=== PATIENT | male | born 1950 | race Caucasian/White ===

== ENCOUNTER 2016-09-13 05:21 | Inpatient (IN) | payer BC ==
[2016-09-08 12:04] LABS: BASOPHILS 0.4 %; BASOPHILS ABSOLUTE 0.03 10/3/uL (0.0-0.16); EOSINOPHILS 2.7 %; EOSINOPHILS ABSOLUTE 0.22 10/3/uL (0.0-0.53); HEMATOCRIT 43.8 % (40.0-51.0); HEMOGLOBIN 15.1 g/dL (13.6-17.8); IMMATURE GRANULOCYTES 0.2 %; IMMATURE GRANULOCYTES ABSOLUTE 0.02 10/3/uL (0.0-0.11); LYMPHOCYTES 32.8 %; LYMPHOCYTES ABSOLUTE 2.65 10/3/uL (0.67-4.30); MANUAL DIFF NO %; MEAN CORPUS HGB CONC 34.5 g/dL (32.0-36.0); MEAN CORPUSCULAR HEMOGLOB 31.1 pg (26.0-34.0); MEAN CORPUSCULAR VOLUME 90.3 fL (80-100); MONOCYTES ABSOLUTE 0.89 10/3/uL (0.21-1.20); NEUTROPHILS 52.9 %; NEUTROPHILS ABSOLUTE 4.26 10/3/uL (2.02-8.40); PLATELET COUNT 199 10/3/uL (150-400); RBC DISTRIBUTION WIDTH 14.2 % (12.0-16.0); RED CELL COUNT 4.85 10/6/uL (4.7-6.1); WHITE BLOOD CELLS 8.1 10/3/uL (4.5-10.5)
[2016-09-08 12:10] LABS: PARTIAL THROMBO TIME 30.1 SEC (22.5-37.2)
[2016-09-08 12:32] LABS: CALCIUM, SERUM 9.7 MG/DL (8.5-10.4); CHLORIDE, SERUM 108 MMOL/L (96-112); CO2 (CARBON DIOXIDE) 28 MMOL/L (24-34); CREATININE 0.95 MG/DL (0.70-1.30); GFR AFRICAN AMERICAN 96 ML/MIN (>=60); GFR NON AFRICAN AMERICAN 83 ML/MIN (>=60); GLUCOSE, SERUM 103 MG/DL (60-99); POTASSIUM, SERUM 4.5 MMOL/L (3.5-5.3); SODIUM, SERUM 141 MMOL/L (135-148)
[2016-09-08 12:33] LABS: BUN (BLOOD UREA NITROGEN) 16 MG/DL (6-23)
--- NOTE | ~2016-09-13 | PREOPHP ---
PreOp History and Physical [id number] [place]. [address] NAME: NAINA YU : 48 STATUS : ADM IN [facility]#: [id number] AGE: 66 ADM/REG DATE : 09/13/16 MR#: [id number] REPORT SERV DATE: 09/14/16 DICTATED BY: GREYSON PUGA DATE: 09/13/16 REPORT STATUS : Draft TRANSCRIBED BY: MODL DATE: 09/13/16 CHIEF COMPLAINT: Recurrent melanoma, right occipital neck. 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 He was noted to have a subcutaneous mass that was diffuse and plaque-like on palpation per Dr. Briceño. Imaging showed an approximately 2-3 cm right suboccipital subcutaneous neck mass. This was FDG avid. There was no additional lymphadenopathy or distant metastasis. The needle biopsy performed of this area on 08/24/2016 showed atypical spindle cell proliferation consistent with recurrent desmoplastic melanoma. The risks, benefits, and alternatives to surgery were discussed with him and he agreed. He was to be admitted after surgery for monitoring. PAST MEDICAL HISTORY: Gout, hypertension, hypercholesterolemia, malignant melanoma, and prostate enlargement. PAST SURGICAL HISTORY: Wide local excision of desmoplastic melanoma of the right parietal scalp, with skin graft reconstruction, rhinoplasty, cardiac bypass, colonoscopy, knee surgery, back surgery, radiation therapy to the right scalp completed in [address] Briceño. MEDICATIONS: Allopurinol, aspirin, metoprolol, pravastatin, and tamsulosin. ALLERGIES: NONE. SOCIAL HISTORY: Occasional caffeine. No alcohol or tobacco. FAMILY HISTORY: Noncontributory. REVIEW OF SYSTEMS: Unremarkable. PHYSICAL EXAMINATION: VITAL SIGNS: Blood pressure 143/79, pulse 53, weight 196 pounds. HEENT: His ears are normal. His nose is normal. His oral cavity and oropharynx are normal. Hypopharynx and larynx not directly visualized. NECK: No adenopathy. SKIN: The skin in the scalp area shows a 2-3 cm subcutaneous plaque-like mass coming down the superior posterior aspect of the sternomastoid muscle at the occipital [place]. He has a well-healed skin graft, right parietal scalp. No palpable cervical lymphadenopathy. HEART: Regular rate and rhythm. LUNGS: Clear to auscultation bilaterally. ABDOMEN: Soft, nontender. EXTREMITIES: Moves all extremities well with good strength. NEUROLOGIC: His cranial nerves are intact, 2 through 12. No gait disturbance. IMPRESSION: Recurrent malignant melanoma of the right occipital neck. PreOp History and Physical [address] [address] NAME: NAINA YU : 48 STATUS : ADM IN [facility]#: [id number] AGE: 66 ADM/REG DATE : 09/13/16 MR#: [id number] REPORT SERV DATE: 09/14/16 DICTATED BY: GREYSON PUGA DATE: 09/13/16 REPORT STATUS : Draft TRANSCRIBED BY: MODL DATE: 09/13/16 PLAN: Plan is for a composite resection of right occipital skin with extended posterolateral neck dissection, cranial nerve 11 transposition, and a complex closure of defect. The patient will be admitted after surgery for observation and monitoring. PH/MODL Greyson Puga M.D. / [id number] CC: Greyson Puga M.D.
--- NOTE | ~2016-09-13 | OP ---
Record Of Operation [address] [place]. [address] NAME: NAINA YU : 48 STATUS : ADM IN PAT#: [id number] AGE: 66 ADM/REG DATE : 09/13/16 MR#: [id number] REPORT SERV DATE: 09/13/16 DICTATED BY: DAVONTE PUGA DATE: 09/13/16 REPORT STATUS : Draft TRANSCRIBED BY: MODL DATE: 09/13/16 DATE OF PROCEDURE: 09/13/2016 PREOPERATIVE DIAGNOSIS: Recurrent malignant melanoma of the right occipital basin. POSTOPERATIVE DIAGNOSIS: Recurrent malignant melanoma of the right occipital basin. PROCEDURES PERFORMED: 1. Composite resection of right occipital recurrent desmoplastic malignant melanoma with 5 x 3 cm skin defect. 2. Right posterolateral neck dissection, levels 2 through 5. 3. Wide local cranial nerve 11 transposition. 4. Complex closure of 5 x 3 cm occipital cutaneous defect. SURGEON: Davonte Puga M.D. MANAGER OF INFORMATION: Storm Grier M.D. ANESTHESIA: General. COMPLICATIONS: None. CONDITION: Stable to recovery. INDICATION: A 66-year-old male with recurrent desmoplastic melanoma of the right occipital [place] involving sternocleidomastoid and some of the subcutaneous tissue of the skin. PROCEDURE IN DETAIL: The patient was identified in preoperative holding, taken back to the operating room, and placed supine on the operating room table. General anesthesia was established. He was prepped and draped in a standard fashion for the operation. A time-out was called and patient and procedure were confirmed. He was placed on a mora bag and put in a partial left lateral decubitus position to provide better exposure to the right occipital [place]. A marking pen was used to outline an incision from the occiput down into the low neck incorporating the subcutaneous area of involvement with the large ellipse. The area was infiltrated subcutaneously with 8 mL of 1% lidocaine with 1:100,000 epinephrine along the incision that was marked. He was then prepped and draped in the standard fashion for the operation. Using 2.5x loupe magnification and headlight illumination, the operation commenced. A Bovie cautery was used to make an incision in the premarked area from the occiput into the low neck incorporating an ellipse of 5 x 3 cm of skin and subcutaneous tissue. The flaps were elevated medially to the midline, superiorly to the angle of the mandible, inferiorly to the clavicle, and laterally to the trapezius muscle, anterior border. The occipital scalp flaps were elevated thin and then into a deeper plane transitioning to the insertions of the trapezius muscle on the occiput as well as the sternomastoid muscle on the occiput. Care was taken to avoid entering into the tumor. Prior to the comprehensive neck dissection, the plaque-like tumor overlying the upper aspect of the sternomastoid muscle was excised en bloc. This involved dissection anteriorly to the Record Of Operation [address] [place]. [address] NAME: NAINA YU : 48 STATUS : ADM IN PAT#: [id number] AGE: 66 ADM/REG DATE : 09/13/16 MR#: [id number] REPORT SERV DATE: 09/13/16 DICTATED BY: DAVONTE PUGA DATE: 09/13/16 REPORT STATUS : Draft TRANSCRIBED BY: MODL DATE: 09/13/16 postauricular sulcus down to the mastoid fascia and posteriorly down to the occipital fascia just deep to the insertions of the trapezius muscle. These muscles were transected down to the splenius capitis, which was our deep margin on this tumor. Anteriorly, we took the upper third of the sternocleidomastoid muscle in addition to the third of the splenius capitis muscle and the upper 1/5 of the trapezius muscle insertion to the occiput. This allowed us to deliver the skin, subcutaneous tumor, and muscle from a superior to inferior direction. Once this was done, a spinal accessory nerve was identified in the posterior triangle. It was 360-degree dissected and transposed inferomedially so that we could deliver the contents of level 5A with the suboccipital tumor. This involved identifying levator scapulae and splenius capitis muscle in the posterior neck, in addition to the area where we excised the upper third of the sternocleidomastoid muscle and its insertions to the mastoid and occiput. This specimen was sent as composite resection of occipital mass with sternocleidomastoid, splenius capitis, and trapezius muscle on level 5A. After this was done, Pathology was called to the room. Pathology did an assessment of the tumor grossly, kinking the tumor and then cutting through it, given its plaque-like formation and difficulty being sure about margins. Once we inspected this grossly, the margins appeared clear. Additionally, we took an area of subcutaneous dermis just to the lateral aspect of the cutaneous portion of the excision and this did not appear to have any scar or desmoplastic features to it and it looked as if it was normal dermis. At this point, we completed the neck dissection, levels 2 through 5, by taking the lymphatic tissue from just inferior to the spinal accessory nerve over the splenius capitis and anterior medial scalene muscles and down into the supraclavicular fossa, ligating the transverse cervical artery and vein, and with hemoclips and Harmonic scalpel, skeletonizing the clavicle, soft-tissue dropping into the supraclavicular fossa identifying the posterior belly of the omohyoid muscle and retracting this so that we could get into the deeper neck area and we reflected all of the lymphatic tissue from the supraclavicular fossa and inferior to the spinal accessory nerve anteriorly and underneath the sternocleidomastoid muscle and over the carotid artery and jugular vein. This was brought into continuity with level 2B superiorly in the neck that was above the spinal accessory nerve and this was delivered underneath the spinal accessory nerve with gentle transposition, and these lymph nodes were dissected off the jugular vein and the medial strap musculature and off the inferior border of the submandibular gland. This lymphatic tissue was divided into levels 2, 3, 4, and 5B. The wound was irrigated. Bipolar cautery was used for hemostasis. A 10-Estonian flat fully-perforated drain was placed and secured with 3-0 Vicryl suture and the wound was closed in layers using 3-0 Vicryl and bree. Part of the closure did involve closing the 5 x 3 cm complex defect and Burow triangles had to be removed and significant undermining to get it to close. The patient was then awakened and taken to recovery in stable condition. The spinal accessory nerve worked at the end of the case. There were no complications. PH/MODL Davonte Puga M.D. Record Of Operation [address] [place]. [address] NAME: NAINA YU : 48 STATUS : ADM IN PAT#: [id number] AGE: 66 ADM/REG DATE : 09/13/16 MR#: [id number] REPORT SERV DATE: 09/13/16 DICTATED BY: DAVONTE PUGA DATE: 09/13/16 REPORT STATUS : Draft TRANSCRIBED BY: MODL DATE: 09/13/16 / [id number] CC: Davonte Puga M.D.
[~2016-09-13 05:21] MED LIST: ASAB PO; ELDERTONIC PO; FLOMAX4 PO; LOP25 PO; LOTE20 PO; PRAVACHOL40 MG PO; VERELAN240 MG PO
[2016-09-14 05:18] LABS: BASOPHILS 0 %; BASOPHILS ABSOLUTE 0.01 10/3/uL (0.0-0.16); EOSINOPHILS 0 %; HEMATOCRIT 42.8 % (40.0-51.0); HEMOGLOBIN 14.7 g/dL (13.6-17.8); IMMATURE GRANULOCYTES 0.3 %; IMMATURE GRANULOCYTES ABSOLUTE 0.07 10/3/uL (0.0-0.11); LYMPHOCYTES 7.6 %; LYMPHOCYTES ABSOLUTE 1.82 10/3/uL (0.67-4.30); MEAN CORPUS HGB CONC 34.3 g/dL (32.0-36.0); MEAN CORPUSCULAR HEMOGLOB 30.8 pg (26.0-34.0); MEAN CORPUSCULAR VOLUME 89.7 fL (80-100); MEAN PLATELET VOLUME 10.5 fL (9.2-13.0); MONOCYTES 10.1 %; MONOCYTES ABSOLUTE 2.41 10/3/uL (0.21-1.20); NEUTROPHILS ABSOLUTE 19.64 10/3/uL (2.02-8.40); PLATELET COUNT 197 10/3/uL (150-400); RBC DISTRIBUTION WIDTH 14.5 % (12.0-16.0); RED CELL COUNT 4.77 10/6/uL (4.7-6.1)
[2016-09-14 05:23] LABS: MANUAL DIFF NO %
[2016-09-14 05:24] LABS: BUN (BLOOD UREA NITROGEN) 15 MG/DL (6-23); CALCIUM, SERUM 8.5 MG/DL (8.5-10.4); CHLORIDE, SERUM 107 MMOL/L (96-112); CO2 (CARBON DIOXIDE) 23 MMOL/L (24-34); CREATININE 1.11 MG/DL (0.70-1.30); GFR AFRICAN AMERICAN 79 ML/MIN (>=60); GFR NON AFRICAN AMERICAN 68 ML/MIN (>=60); GLUCOSE, SERUM 114 MG/DL (60-99); POTASSIUM, SERUM 4.3 MMOL/L (3.5-5.3); SODIUM, SERUM 141 MMOL/L (135-148)
[2016-09-15] MEDS ORDERED: NORCO1 TAB PO (10:29)
== END 2016-09-15 13:56 | disposition home or self-care (01) | DRG 571 ==
LOC: SDC/OF 05:21 → PACU 11:36 → IMCU 15:54 → 7NO 09-14 09:58
PROVIDERS: Specialist
PROC: 07B10ZZ Excision of Right Neck Lymphatic, Open Approach (ICD-10-PCS; 2016-09-13)
PROC: 00B Central Nervous System and Cranial Nerves, Excision (ICD-10-PCS; 2016-09-13)
PROC: 0HQ4XZZ Repair Neck Skin, External Approach (ICD-10-PCS; 2016-09-13)
PROC: 0HB4XZZ Excision of Neck Skin, External Approach (ICD-10-PCS; principal; 2016-09-13 07:15)
DX: C43.4 Malignant melanoma of scalp and neck (principal); C77.0 Secondary and unspecified malignant neoplasm of lymph nodes of head, face and neck; I10 Essential (primary) hypertension; E78.00 Pure hypercholesterolemia, unspecified; G47.33 Obstructive sleep apnea (adult) (pediatric); Z95.1 Presence of aortocoronary bypass graft; I25.10 Atherosclerotic heart disease of native coronary artery without angina pectoris; Z85.820 Personal history of malignant melanoma of skin
CPT/HCPCS: 36415; 70553; 71010; 71020; 80048; 85025; 85730; 86850; 86900; 86901; 88305; 88307; 88331; 88341; 88342; 93005; A9270-GY; A9577; J0690; J2250; J2270; J2370; J2405; J2710; J3010